=== PATIENT | female | born 1980 | race Caucasian/White ===

== ENCOUNTER 2019-01-21 18:37 | Emergency (ER) | payer OTHER ==
[2019-01-21 19:39] VITALS: BP 132/74
--- NOTE | 2019-01-21 19:49 | UC ---
Lower Extremity/Ankle HPI - HPI Summary HPI Summary: L calf pain and intermittent tingling after laying in bed for a few days. Her hips were hurting and wanted to rest. She is concerned for DVT. she has not had surgery in the past 6 mo., she is NOT a smoker, no hx of CA, does not take any estrogen based meds, no recent long travel, denies previous hx of DVT. - History of Current Complaint Chief Complaint: UCLowerExtremity Stated Complaint: leg complaint Time Seen by Provider: 01/21/19 19:40 Hx Obtained From: Patient Hx Last Menstrual Period: 01/19/19 Onset/Duration: Gradual Onset Pain Intensity: 1 Pain Scale Used: 0-10 Numeric Aggravating Factor(s): Nothing Alleviating Factor(s): Nothing Able to Bear Weight: Yes - Risk Factors DVT Risk Factors: Recent Period Of Bedrest - Allergies/Home Medications Allergies/Adverse Reactions: Allergies Allergy/AdvReac Type Severity Reaction Status Date / Time No Known Allergies Allergy Verified 01/21/19 19:39 Home Medications: Home Medications NK [No Home Medications Reported] 01/21/19 [History Confirmed 01/21/19] PMH/Surg Hx/FS Hx/Imm Hx Previously Healthy: Yes - Surgical History Surgical History: None - Social History Alcohol Use: None Substance Use Type: None Smoking Status (MU): Never Smoked Tobacco Review of Systems All Other Systems Reviewed And Are Negative: Yes Constitutional: Negative: Fever, Chills, Fatigue Skin: Negative: Bruising Respiratory: Negative: Shortness Of Breath Cardiovascular: Negative: Palpitations Musculoskeletal: Positive: Calf Tenderness - L. Negative: Edema, Myalgia Neurological: Positive: Paresthesia - intermittent at L calf/back of thigh.. Negative: Weakness Physical Exam Triage Information Reviewed: Yes Completion Of Physical Exam Limited Due To: Extremis Vital Signs: Initial Vital Signs Temp 97.7 F 01/21/19 19:33 Pulse 76 01/21/19 19:33 Resp 18 01/21/19 19:33 BP 132/74 01/21/19 19:33 Pulse Ox 100 01/21/19 19:33 Vital Signs Reviewed: Yes Respiratory: Positive: No respiratory distress Cardiovascular: Positive: Brisk Capillary Refill Musculoskeletal: Positive: ROM Intact - L leg, No Edema, Other: - No cords felt in L extremity, no redness no swelling. Neurological: Positive: Other: - NL gait. Diagnostics - Radiology No standard instances Radiology Interpretation Completed By: Radiologist Lower Extremity Course/Dx - Course Course Of Treatment: L calf pain after a few days of bed rest while she was resting her hips which were irritated. We wanted to r/o DVT on US today which was neg. Her main risk factors are high BMI and recent bed rest. vitals good. This is likely a muscle cramp and we disc ways to manage this. - Differential Dx/Diagnosis Differential Diagnosis/HQI/PQRI: Bursitis, DVT, Other Provider Diagnosis: Pain of left calf Discharge ED - Sign-Out/Discharge Documenting (check all that apply): Patient Departure All imaging exams completed and their final reports reviewed: Yes - Discharge Plan Condition: Good Disposition: HOME Patient Education Materials: Muscle Cramp (ED) Referrals: No Primary Care Phys,NOPCP [Primary Care Provider] - Additional Instructions: If worsening please see your primary care provider at [facility] - Billing Disposition and Condition Condition: GOOD Disposition: Home
== END 2019-01-21 20:56 | disposition home or self-care (01) ==
LOC: UCEAST 18:37
DX: M79.662 Pain in left lower leg (principal); R20.2 Paresthesia of skin
CPT/HCPCS: 99211; G0463

== ENCOUNTER 2019-03-15 15:41 | Emergency (ER) | payer OTHER ==
[2019-03-15 16:00] VITALS: BP 146/97
--- NOTE | 2019-03-15 17:13 | UC ---
Throat Pain/Nasal [place] HPI - HPI Summary HPI Summary: 39yo female presenting with sore throat, nasal congestion, and b/l ear pain since yesterday. Patient also notes low grade fever off 99 yesterday that she is keeping down with tylenol. Denies cough, shortness breath, and wheezing. Denies n/v/d, abdominal pain. States that she was sick last week with "low grade fever and stomach bug" which resolved. Patient also notes fatigue" since before [place]." Patient states concern for influenza as she has been exposed by family member. Unsure of other ill contacts. Patient also notes concern for mono since she has been experiencing fatigue for several weeks. States she has been taking Tylenol sinus medication [id number] without much relief. - History of Current Complaint Chief Complaint: UCRespiratory Stated Complaint: FEVER Hx Obtained From: Patient Hx Last Menstrual Period: one month ago Pain Intensity: 2 Pain Scale Used: 0-10 Numeric - Allergies/Home Medications Allergies/Adverse Reactions: Allergies Allergy/AdvReac Type Severity Reaction Status Date / Time latex Allergy Itching Verified 03/15/19 16:01 PMH/Surg Hx/FS Hx/Imm Hx Previously Healthy: Yes - Surgical History Surgical History: None - Family History Known Family History: Positive: Non-Contributory - Social History Alcohol Use: Occasionally Substance Use Type: None Smoking Status (MU): Never Smoked Tobacco Review of Systems All Other Systems Reviewed And Are Negative: Yes Constitutional: Positive: Fever - "low grade 99", Fatigue ENT: Positive: Sore Throat, Ear Ache - b/l pain, Sinus Congestion Respiratory: Positive: Negative. Negative: Cough Cardiovascular: Positive: Negative Gastrointestinal: Positive: Negative. Negative: Vomiting, Nausea Musculoskeletal: Positive: Negative. Negative: Myalgia Neurological: Negative: Headache Physical Exam Triage Information Reviewed: Yes Appearance: Well-Appearing, No Pain Distress, Well-Nourished Vital Signs: Initial Vital Signs Temp 98.4 F 03/15/19 15:57 Pulse 93 03/15/19 15:57 Resp 16 03/15/19 15:57 BP 146/97 03/15/19 15:57 Pulse Ox 100 03/15/19 15:57 Lab Results 03/15/19 03/15/19 Range/Units 17:09 17:28 Influenza A (Rapid) Negative (Negative) Influenza B (Rapid) Negative (Negative) Group A Strep Rapid Negative (Negative) Vital Signs Reviewed: Yes Eyes: Positive: Conjunctiva Clear ENT: Positive: Hearing grossly normal, Pharyngeal erythema, TMs normal, Tonsillar swelling, Tonsillar exudate - left, Uvula midline. Negative: Nasal congestion, Nasal drainage, Trismus, Muffled voice, Hoarse voice Neck exam: Normal Neck: Positive: Supple, Nontender, No Lymphadenopathy Respiratory Exam: Normal Respiratory: Positive: Lungs clear, Normal breath sounds, No respiratory distress Cardiovascular Exam: Normal Cardiovascular: Positive: RRR, No Murmur. Negative: Tachycardia Neurological: Positive: Alert Psychological: Positive: Age Appropriate Behavior Skin Exam: Normal Throat Pain/Nasal Course/Dx - Course Course Of Treatment: Negative rapid strep and flu tests. Throat culture is also sent this on history and physical exam findings. Patient received testing for mono. I informed the patient she'll be notified only with any positive results. Instructed to continue symptomatic treatment to follow up with physician referral list symptoms do not resolve. Patient voiced understanding and agreed with the treatment plan. - Differential Dx/Diagnosis Differential Diagnosis/HQI/PQRI: Mononucleosis, Pharyngitis, Sinusitis, URI, Other - viral illness Provider Diagnosis: Exudative pharyngitis, Fatigue Discharge ED - Sign-Out/Discharge Documenting (check all that apply): Patient Departure All imaging exams completed and their final reports reviewed: No Studies - Discharge Plan Condition: Stable Disposition: HOME Patient Education Materials: Pharyngitis (ED), Viral Syndrome (ED) Forms: *Work Release Referrals: [facility] [Outside] - If Needed [facility]FERRAL [Outside] - If Needed Additional Instructions: As discussed, your rapid strep and flu tests were negative today. Your throat swab was sent for culture and you be notified with any positive results warranting treatment. You also received testing for mono today and will be notified with any positive results. Continue to get plenty of rest and fluids. You may continue with [id number] cold and flu medications as directed. Follow-up with the physician referral listed below if symptoms persist. Go to the emergency room a few experience any new or worsening symptoms. - Billing Disposition and Condition Condition: STABLE Disposition: Home - Attestation Statements Provider Attestation: I was available for consult. This patient was seen by the CAMERON. The patient was not presented to, seen by, or examined by me. -Dang
[2019-03-15] MEDS ORDERED: Ibuprofen TAB* 600 MG PO ONE (17:18)
[2019-03-15 17:40] LABS: Influenza A Molecular NEGATIVE (Negative); Influenza B Molecular NEGATIVE (Negative)
[2019-03-18 15:23] LABS: EBV Capsid Ag IgG Ab Positive (Negative); EBV Capsid Ag IgM Ab Negative (Negative); Epstein-Barr Nuclear Antigen Positive (Negative)
== END 2019-03-15 18:12 | disposition home or self-care (01) ==
LOC: UCEAST 15:41
DX: J02.9 Acute pharyngitis, unspecified (principal); R53.83 Other fatigue; H92.03 Otalgia, bilateral; Z91.040 Latex allergy status
CPT/HCPCS: 36415; 86308; 86664; 86665; 87070; 87651; 99211; A9270-GY; G0463